=== PATIENT | male | born 1985 | race American Indian/Alaskan Native ===

== ENCOUNTER 2018-02-11 20:28 | Emergency (ER) | payer OTHER ==
[2018-02-11 20:43] VITALS: RESP 18
[2018-02-11] MEDS ORDERED: KETOROLAC 30 MG/ML 1 ML VIAL IVP STA (21:01)
[2018-02-11] MEDS ORDERED: SODIUM CHLORIDE 0.9% 1,000 ML IV ONE (21:01)
[2018-02-11] MEDS ORDERED: METOCLOPRAMIDE 5 MG/ML 2 ML VIAL IVP STA (21:01)
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
[2018-02-11 21:43] LABS: Anion Gap 11 mmol/L; Blood Urea Nitrogen 15 mg/dL (9-20); Calcium 11.3 mg/dL (8.4-10.2); Carbon Dioxide 25 mmol/L (22-30); Chloride 105 mmol/L (98-107); Glucose 90 mg/dL (74-99); Potassium 4.7 mmol/L (3.5-5.1); Sodium 141 mmol/L (137-145)
[2018-02-11 21:49] LABS: Basophils % (A) 0 %; Eosinophils # (A) 0.1 k/uL (0-0.7); Eosinophils % (A) 1 %; HCT 40.8 % (39.0-53.0); HGB 14.5 gm/dL (13.0-17.5); Lymphocytes # (A) 1.3 k/uL (1.0-4.8); Lymphocytes % (A) 15 %; MCH 30.7 pg (25.0-35.0); MCHC 35.5 g/dL (31.0-37.0); MCV 86.3 fL (80.0-100.0); Mean Platelet Volume 7.2; Monocytes # (A) 0.4 k/uL (0-1.0); Monocytes % (A) 4 %; Neutrophils # (A) 6.8 k/uL (1.3-7.7); Neutrophils % (A) 78 %; Platelet Count 222 k/uL (150-450); RBC 4.73 m/uL (4.30-5.90); RDW 13.3 % (11.5-15.5); WBC 8.7 k/uL (3.8-10.6)
[2018-02-11 22:59] VITALS: BP 125/67; PULSE 70; TEMP 97.5
== END 2018-02-11 22:58 | disposition home or self-care (01) ==
LOC: EC 20:28
DX: R51 Headache (principal); R11.0 Nausea; E86.0 Dehydration; Z87.891 Personal history of nicotine dependence; Z88.5 Allergy status to narcotic agent
CPT/HCPCS: 36415; 80048; 85025; 99283; 96374; 96375; 96361; J2765; J1885

== ENCOUNTER 2021-02-26 05:31 | Emergency (ER) | payer OTHER ==
[2021-02-26] MEDS ORDERED: SODIUM CHLORIDE 0.9% 1,000 ML BAG ONE (07:00)
[2021-02-26 07:38] LABS: Basophils % (A) 0 %; Eosinophils # (A) 0.1 k/uL (0-0.7); Eosinophils % (A) 1 %; HCT 41.3 % (39.0-53.0); Lymphocytes # (A) 1.3 k/uL (1.0-4.8); Lymphocytes % (A) 17 %; MCH 29.4 pg (25.0-35.0); MCHC 33.9 g/dL (31.0-37.0); MCV 86.7 fL (80.0-100.0); Mean Platelet Volume 8.1; Monocytes # (A) 0.5 k/uL (0-1.0); Monocytes % (A) 6 %; Neutrophils # (A) 6.1 k/uL (1.3-7.7); Neutrophils % (A) 75 %; Platelet Count 208 k/uL (150-450); RBC 4.77 m/uL (4.30-5.90); RDW 13.1 % (11.5-15.5); WBC 8.1 k/uL (3.8-10.6)
[2021-02-26 07:53] LABS: Albumin 4.9 g/dL (3.5-5.0); Calcium 9.8 mg/dL (8.4-10.2); Total Bilirubin 0.9 mg/dL (0.2-1.3); Total Protein 7.9 g/dL (6.3-8.2)
[2021-02-26 07:56] LABS: Appearance,Urine Clear (Clear); Bilirubin,Urine Negative (Negative); Blood,Urine Negative (Negative); Color,Urine Yellow; Glucose,Urine (UA) Negative (Negative); Ketones,Urine 2+ (Negative); Leukocyte Esterase,Urine Negative (Negative); Nitrite,Urine Negative (Negative); PH, Urine 5.5 (5.0-8.0); Protein,Urine Negative (Negative); Urobilinogen,Urine <2.0 mg/dL (<2.0)
== END 2021-02-26 08:45 | disposition home or self-care (01) ==
LOC: EC 05:31
DX: E86.0 Dehydration (principal); Z88.5 Allergy status to narcotic agent
CPT/HCPCS: 36415; 80053; 81003; 83690; 85025; 99285

== ENCOUNTER 2023-03-10 18:54 | Emergency (ER) | payer OTHER ==
[2023-03-10] MEDS ORDERED: ACETAMINOPHEN TAB 500 MG TAB PO STA (19:17)
[2023-03-10] MEDS ORDERED: DIPH,PERTUS(ACELL)TETVAC-LF 0.5 ML VIAL IM ONE (19:19)
[2023-03-10 19:23] VITALS: TEMP 98.3
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
[2023-03-10 21:08] VITALS: RESP 18
[2023-03-10 21:43] LABS: Basophils % (A) 0 %; Eosinophils # (A) 0.3 k/uL (0-0.7); Eosinophils % (A) 2 %; HCT 41.9 % (39.0-53.0); HGB 14.4 gm/dL (13.0-17.5); Lymphocytes # (A) 1.4 k/uL (1.0-4.8); Lymphocytes % (A) 11 %; MCH 29.8 pg (25.0-35.0); MCHC 34.4 g/dL (31.0-37.0); MCV 86.7 fL (80.0-100.0); Mean Platelet Volume 8.5; Monocytes # (A) 0.7 k/uL (0-1.0); Monocytes % (A) 6 %; Neutrophils # (A) 10.1 k/uL (1.3-7.7); Neutrophils % (A) 80 %; Platelet Count 164 k/uL (150-450); RBC 4.84 m/uL (4.30-5.90); RDW 13.2 % (11.5-15.5); WBC 12.6 k/uL (3.8-10.6)
[2023-03-10 22:04] LABS: ALT 28 U/L (4-49); AST 37 U/L (17-59); African American GFR (CKD) 70 (>60 ml/min/1.73 sqM); Albumin 4.6 g/dL (3.5-5.0); Alcohol <10 mg/dL; Alkaline Phosphatase 51 U/L (38-126); Anion Gap 10 mmol/L; Blood Urea Nitrogen 19 mg/dL (9-20); Calcium 9.5 mg/dL (8.4-10.2); Carbon Dioxide 22 mmol/L (22-30); Chloride 104 mmol/L (98-107); Glucose 98 mg/dL (74-99); Non-African American GFR(CKD) 60 (>60 ml/min/1.73 sqM); Potassium 4.7 mmol/L (3.5-5.1); Sodium 136 mmol/L (137-145); Total Bilirubin 0.7 mg/dL (0.2-1.3); Total Protein 8.2 g/dL (6.3-8.2)
[2023-03-10 22:30] VITALS: BP 126/86; PULSE 70
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
== END 2023-03-10 22:46 | disposition other institution (70) ==
LOC: EC 18:54
DX: S02.2XXA Fracture of nasal bones, initial encounter for closed fracture (principal); S01.01XA Laceration without foreign body of scalp, initial encounter; S06.1XAA Traumatic cerebral edema with loss of consciousness status unknown, initial encounter; R40.2362 Coma scale, best motor response, obeys commands, at arrival to emergency department; R40.2142 Coma scale, eyes open, spontaneous, at arrival to emergency department; R40.2252 Coma scale, best verbal response, oriented, at arrival to emergency department; Z88.5 Allergy status to narcotic agent; Z23 Encounter for immunization; Y04.0XXA Assault by unarmed brawl or fight, initial encounter
CPT/HCPCS: 36415; 80053; 85025; 72125; 70486; 70450; 90715; 12001; 99285; 90471; G0480; 80320